=== PATIENT | male | born 1955 | race Caucasian/White ===

== ENCOUNTER 2017-07-13 01:20 | Emergency (ER) | payer OTHER ==
[~2017-07-13] VITALS: Ht 180.3 cm; Wt 99.8 kg
[2017-07-13 01:27] VITALS: BP 131/53
== END 2017-07-13 02:00 | disposition home or self-care (01) ==
LOC: ER 01:28
DX: S61.052A Open bite of left thumb without damage to nail, initial encounter (principal); F17.200 Nicotine dependence, unspecified, uncomplicated; W54.0XXA Bitten by dog, initial encounter; Y92.89 Other specified places as the place of occurrence of the external cause; Y93.89 Activity, other specified; Y99.8 Other external cause status
CPT/HCPCS: 90471; 90715; 99283; A4606; A6403; Z7610

== ENCOUNTER 2018-03-18 21:31 | Emergency (ER) | payer OTHER ==
[~2018-03-18] VITALS: Ht 182.9 cm; Wt 97.5 kg
--- NOTE | 2018-03-18 21:50 | NUR ---
PATIENT TO ED DT LEFT ANKLE PAIN SP TRIPPED TODAY 1400-- 06/18 PAIN AT THIS TIME, LEFT ANKLE NOTED WITH SWELLING. ABLE TO WAL HOWEVER WITH DISCOMFORT. VSS
--- NOTE | 2018-03-18 22:58 | NUR ---
PT LEFT ANKLE ELEVATED ON BLANKETS AND ICE PACK APPLIED. PT REC'D ICE WATER.
[2018-03-18] MEDS ORDERED: HYDROCODONE/APAP 10/325MG 1 EA TABLET ONE (23:20)
[2018-03-18] MEDS ORDERED: ONDANSETRON 4 MG TAB.RAPDIS ONE (23:20)
[2018-03-18] MEDS ORDERED: ONDANSETRON 4 MG TAB.RAPDIS SL ONE (23:30)
[2018-03-18] MEDS ORDERED: HYDROCODONE/APAP 10/325MG 1 EA TABLET PO ONE (23:30)
--- NOTE | 2018-03-18 23:49 | NUR ---
Patient discharged to home in stable condition. Written and verbal after care instructions given. Patient verbalizes understanding of instruction AND RX. PT TO GET AN ORTHOGLASS SPLINT TO THE LLE AND CRUTCHES.
--- NOTE | 2018-03-19 00:08 | NUR ---
Crutches dispensed. Pt instructed on proper use of crutches. Patient able to demonstrate correct use of crutches. PT AMBULATED OUT WITH A STEADY GAIT.
[2018-03-19 02:23] VITALS: BP 108/67
== END 2018-03-19 00:08 | disposition home or self-care (01) ==
LOC: ER 21:35
DX: S93.492A Sprain of other ligament of left ankle, initial encounter (principal); F17.200 Nicotine dependence, unspecified, uncomplicated; Z95.818 Presence of other cardiac implants and grafts; W01.0XXA Fall on same level from slipping, tripping and stumbling without subsequent striking against object, initial encounter; X50.1XXA Overexertion from prolonged static or awkward postures, initial encounter; Y93.89 Activity, other specified; Y92.89 Other specified places as the place of occurrence of the external cause; Y99.8 Other external cause status
CPT/HCPCS: 29515; 73610; 99284; A4606; Q0162; Z7610